=== PATIENT | female | born 1940 | race Caucasian/White ===

== ENCOUNTER → 2018-05-24 14:20 | Outpatient (CLI) | payer OTHER, SELFPAY | PROVIDERS: PCP Physician Assistant; Visit Provider Physician Assistant | DX: Z13.820 Encounter for screening for osteoporosis (principal); M81.0 Age-related osteoporosis without current pathological fracture; Z78.0 Asymptomatic menopausal state; Z82.62 Family history of osteoporosis | CPT/HCPCS: 77080 ==

== ENCOUNTER → 2020-03-19 08:37 | Outpatient (CLI) | payer OTHER, SELFPAY ==
[2020-03-19 11:21] LABS: COVID19 -Nasal RAPID Negative (Negative)
== END ==
PROVIDERS: PCP Physician Assistant; Visit Provider Physician Assistant
DX: Z11.59 Encounter for screening for other viral diseases (principal)
CPT/HCPCS: 87635

== ENCOUNTER → 2020-05-01 11:01 | Outpatient (CLI) | payer OTHER, SELFPAY ==
--- NOTE | 2020-05-01 11:38 | DI.RAD.S_ITS ---
PROCEDURE: XR FOOT RT MIN 3V INDICATIONS: FOOT PAIN TECHNIQUE: 3 views of the foot were acquired. COMPARISON: None. FINDINGS: Bones: No fractures or dislocations. No suspicious bony lesions. Joint space narrowing and osteophytosis is present at the TMT joints. Soft tissues: No tibiotalar joint effusion. Achilles tendon appears normal. IMPRESSION: Mild degenerative change. Dictated by: Christa Freitas M.D. on 05/01/2020 at 12:47 Approved by: Christa Freitas M.D. on 05/01/2020 at 12:48
== END ==
PROVIDERS: PCP Internal Medicine; Referring Provider Student in an Organized Health Care Education/Training Program; Visit Provider Student in an Organized Health Care Education/Training Program
DX: M79.671 Pain in right foot (principal)
CPT/HCPCS: 73630

== ENCOUNTER 2020-07-29 11:04 | Emergency (ER) | payer OTHER, SELFPAY ==
[2020-07-29 11:08] VITALS: BP 169/81; PULSE 71; RESP 16; TEMP 36.7; O2SAT 98; BMI 25.7
--- NOTE | 2020-07-29 11:44 | PC.NURSE ---
[facility] attempted to drain recurrent cyst on Tuesday without success. Was to come in for a recheck today to [facility] and pt feels it is worse and wanted to be seen in the ER. Pt was not placed on antibiotics at the time. No surrounding redness and pt denies fever or other systemic symptoms.
[2020-07-29 13:04] VITALS: BP 154/82; PULSE 67; RESP 18; O2SAT 99
--- NOTE | 2020-07-29 13:07 | ED_ITS ---
HPI - Skin/Abscess/Foreign Bdy <KENNETH AlvaradoBC - Last Filed: 07/29/20 14:59> General Chief complaint: Skin/Abscess/Foreign Body Stated complaint: infected cyst on back Time Seen by Provider: 07/29/20 12:10 Source: patient Mode of arrival: Ambulatory Limitations: no limitations History of Present Illness HPI narrative: The patient is a 80-year-old female nonsmoker with history of leonidas k cyst who presents with a chief complaint of a cyst on her back. She states she was seen at a walk-in clinic in [place] several days ago, they tried to Thang it did not get much out. The patient states that the provider put some kind of silver and its, and told her to come back if it was getting better and then the replace her on antibiotics. However today she notes that the cyst area is increasingly red and painful. She denies any drainage. Denies any fevers muscle aches chills nausea or vomiting. She denies any history of MRSA, history of diabetes or intravenous drug use. Related Data Home Medications Medication Instructions Recorded Confirmed aspirin 81 mg tablet,delayed 81 mg PO DAILY 11/27/17 11/27/17 release Previous Rx's Medication Instructions Recorded cephalexin 500 mg PO TID 7 Days #21 cap 07/29/20 Allergies Allergy/AdvReac Type Severity Reaction Status Date / Time acetaminophen [From Percocet] AdvReac GI upset Verified 07/29/20 11:12 oxycodone [From Percocet] AdvReac GI upset Verified 07/29/20 11:12 Review of Systems <TREVER Alvarado - Last Filed: 07/29/20 14:59> Review of Systems Narrative: GENERAL: Denies chills, fatigue, malaise, fever, sweats. HEENT: Denies sinus pain, ear pain, sore throat, difficulty swallowing, dizziness. RESPIRATORY: Denies dyspnea, cough, wheezing, hemoptysis, sputum. CARDIOVASCULAR: Denies chest pain, palpitations, orthopnea, edema, GASTROINTESTINAL: Denies nausea, vomiting, abdominal pain, diarrhea, constipation, melena. : Denies dysuria, frequency, incontinence, hematuria, urinary retention. MUSCULOSKELETAL: denies weakness, joint pain, or bony pain SKIN: See HPI NEUROLOGIC: Denies weakness, headache, numbness, change in speech, confusion, seizures, incoordination. PSYCHIATRIC: No concerning psychosocial issues. 12 point review of systems is negative except for those stated above Patient History <TREVER Alvarado - Last Filed: 07/29/20 14:59> Social History Smoking Status: Never smoker alcohol intake: current Smoking Status: Never smoker alcohol intake frequency: 0-2 drinks per day Substance Use Type: does not use Exam <TREVER Alvarado - Last Filed: 07/29/20 14:59> Narrative Exam Narrative: GENERAL: This is a well-nourished, well-developed patient, in no acute distress HEAD: Atraumatic. Normocephalic. No temporal or scalp tenderness. EYES: Pupils equal round and reactive. Extraocular motions intact. No scleral icterus. No injection or drainage. ENT: Nose without bleeding, purulent drainage or septal hematoma. Wearing a mask. Airway patent. NECK: Trachea midline. No JVD or lymphadenopathy. Supple, nontender, no meningeal signs. CARDIOVASCULAR: Regular rate and rhythm RESPIRATORY: No cough. No increased respiratory effort. No accessory muscle use. EXTREMITIES: No clubbing, cyanosis, or edema. No joint tenderness, effusion, or edema noted. BACK: See skin exam NEURO: AOx3. SKIN: 2 cm abscess noted right side of T-spine in between scapula, actively draining purulent drainage, erythema overlying noted. No other abnormality noted on visual skin. Initial Vital Signs Initial Vital Signs: Vital Signs Temperature 98.0 F 07/29/20 11:08 Pulse Rate 71 07/29/20 11:08 Respiratory Rate 16 07/29/20 11:08 Blood Pressure 169/81 H 07/29/20 11:08 Pulse Oximetry 98 07/29/20 11:08 <Rachel Yuan DO - Last Filed: 07/29/20 18:55> Initial Vital Signs Initial Vital Signs: Vital Signs Temperature 98.0 F 07/29/20 11:08 Pulse Rate 71 07/29/20 11:08 Respiratory Rate 16 07/29/20 11:08 Blood Pressure 169/81 H 07/29/20 11:08 Pulse Oximetry 98 07/29/20 11:08 Course <TREVER Alvarado - Last Filed: 07/29/20 14:59> Orders Ordered: ED Orders 07/29/20 13:00 Wound Culture and Gram Stain Stat Vital Signs Vital signs: Vital Signs - 8 hr 07/29/20 11:08 07/29/20 13:04 Temperature 98.0 F Pulse Rate 71 67 Respiratory Rate 16 18 Blood Pressure 169/81 H 154/82 H Pulse Oximetry 98 99 <Rachel Yuan DO - Last Filed: 07/29/20 18:55> Orders Ordered: ED Orders 07/29/20 13:00 Wound Culture and Gram Stain Stat Vital Signs Vital signs: Vital Signs - 8 hr 07/29/20 11:08 07/29/20 13:04 Temperature 98.0 F Pulse Rate 71 67 Respiratory Rate 16 18 Blood Pressure 169/81 H 154/82 H Pulse Oximetry 98 99 MDM - Skin/Abscess/Foreign Bdy <ELAYNE Alvarado-BC - Last Filed: 07/29/20 14:59> MDM Narrative Medical decision making narrative: The patient is a 80-year-old female who presents with a chief complaint of an abscess on her back that is actively draining. Wound culture was taken. Gentle pressure was applied to help facilitate drainage. The patient would prefer to use hot packs rather than cut into it again at this point in time, I am comfortable that given that it is active be draining. Will place her on Keflex as she has no history of IV drug use her diabetes. Encouraged follow-up with primary care provider gave her contact information to the [facility] health human resources specialist. Discussed monitor for fevers vomiting and signs of systemic infection. Patient has no questions or concerns upon discharge states understanding return precautions as well as follow-up care. Discharge Plan Departure Patient Disposition: Home Clinical Impression: Abscess of skin or subcutaneous tissue Qualifiers: Site of cutaneous abscess: trunk Site of cutaneous abscess of trunk: back Qualified Code(s): L02.212 - Cutaneous abscess of back [any part, except buttock] Instructions: DI for Skin Abscess Activity Restrictions/Additional Instructions: Thank you for trusting us with your care today. As discussed, I sent a prescription of antibiotics to [facility]. Please take this with probiotic or yogurt. That will help reduce antibiotic related side effects. As discussed, we are doing a wound culture. Will take several days to result. If we need to change your antibiotics, we will contact you. Please follow-up with primary care provider in the next few days. I have given you contact information to the [facility] human resources specialist. They can help much with primary care provider in the area. I suggest warm compresses several times per day to help facilitate drainage Please monitor for high fevers, extending redness despite several doses of antibiotics, or any acute concerns. If you have any acute concerns, please come back to the emergency department. Prescriptions: New cephalexin 500 mg capsule 500 mg PO TID 7 Days Qty: 21 RF: 0 No Action aspirin [Adult Low Dose Aspirin] 81 mg tablet,delayed release (DR/EC) 81 mg PO DAILY RF: 0 Referrals: [facility] [Outside] <Rachel Yuan, - Last Filed: 07/29/20 18:55> Cosign ED Attending Nadiyaature Attestation: I was immediately available in the department for consultation. Documentation has been reviewed. I agree with assessment and plan.
== END 2020-07-29 13:11 | disposition home or self-care (01) ==
PROVIDERS: Emergency Provider Nurse Practitioner Family
DX: L02.212 Cutaneous abscess of back [any part, except buttock and flank] (principal)
CPT/HCPCS: 87070; 87075; 87077; 87147; 87186; 87205; 99282

== ENCOUNTER → 2020-09-05 10:38 | Outpatient (CLI) | payer OTHER, SELFPAY ==
[2020-09-05 12:24] LABS: COVID19 -Nasal RAPID Negative (Negative)
== END ==
PROVIDERS: PCP Physician Assistant; Visit Provider Surgery
DX: Z20.822 Contact with and (suspected) exposure to COVID-19 (principal)
CPT/HCPCS: 87635; C9803

== ENCOUNTER 2020-09-08 12:07 | Day surgery (SDC) | payer OTHER, SELFPAY ==
[2020-09-04 08:30] VITALS: BMI 25.7
--- NOTE | 2020-09-08 | PATH_ITS ---
[facility] Accession Number: [id number] . 01 Material submitted: . back - UPPER BACK . 01 Diagnosis: Upper Back, Excision: Consistent with epidermal inclusion cyst with evidence of prior rupture. Incidental seborrheic keratosis. MRV 09/12/2020 1214 Local . 01 Electronically signed: . Remington Hernandez MD, Dermatopathologist NPI- [id number] . 01 Gross description: . The specimen is received in formalin, labeled upper back lesion and consists of a 3.2 x 1.0 cm skin excised to a depth of 1.0 cm. The skin surface displays a 1.1 x 0.8 x 0.2 cm -pink nodule abutting the margin. Also received is a 0.8 x 0.5 x 0.4 cm disrupted -white cyst. The margins are inked blue and the specimen is entirely submitted. . A1: tips from skin ellipse. A2-A4: central cross-sections of skin ellipse (lesion in A2-A3), 3 each. A5: cyst, bisected. (EA:[id number]) /MRV 09/09/2020 1558 Local . 01 Pathologist provided ICD-10: L72.0, L82.1 . 01 CPT . 536627 Performed at: [address] [facility] [address], [place], [place] [id number] MD Clemente Caro MD Phone: [phone]
[2020-09-08 12:26] VITALS: BP 145/77; PULSE 67; RESP 16; TEMP 36.3; O2SAT 99
[2020-09-08] MEDS: LACTATED RINGERS 1,000 ML 100 ML IV (12:36)
[2020-09-08 13:02] VITALS: BMI 25.7
--- NOTE | 2020-09-08 13:38 | PM.PREOP ---
Pre-operative Note COVID-19 COVID-19 status: Negative Result date/Date tested (Pos, Neg/Pending): 09/05/20 Interval Note History & Physical reviewed/Exam performed by Physician: Yes Changes to H&P: No
[2020-09-08] MEDS: CEFAZOLIN 2 GM/100 ML FROZ.PIGGY IV (13:45)
--- NOTE | 2020-09-08 14:05 | SUR.OPER ---
Lateral on GLASGOW BAG, head on pillow, gel axillary roll in place, bottom leg bent with gel pad under knee to foot, upper leg straight and supported with pillows. Upper arm supported by pillows and secured over bottom arm to padded arm board. Safety belt at hip, tape over blanket lower legs.
[2020-09-08] MEDS: BUPIVACAINE 0.25% W/ EPI (PF) 10 ML VIAL 20 ML INJ (14:12)
[2020-09-08 14:31] VITALS: BP 129/66; PULSE 64; RESP 15; TEMP 37; O2SAT 97
[2020-09-08 14:36] VITALS: BP 131/66; PULSE 64; RESP 12; O2SAT 97
--- NOTE | 2020-09-08 14:36 | P.OP_ITS ---
Operative Date/Time/Diagnoses Date of procedure: 09/08/20 Time of procedure: 14:36 Pre-op diagnosis: Chronic upper back skin lesion Post-op diagnosis: same Procedure & Clinicians Procedure: Excision of upper back skin lesion with underlying cystic mass Same procedure as scheduled: Yes Indications: Chronic upper back skin lesion, with skin involvement, and frequent swelling and spontaneous drainage. Unknown neoplastic potential. Surgeon: Gerda Garcia Anesthesia Type: General Operative Notes Findings: Cystic lesion involving the skin and subcutaneous tissue, with chronic skin changes Specimen(s): other (Upper back lesion) Estimated Blood Loss (mL): 3 Procedure in detail: The patient was brought to the operating room, placed supine on the operating table, and sequential compression devices were placed on both legs and turned on. Appropriate perioperative antibiotics were given. General anesthesia was induced by the anesthesiologist and the patient was intubated with an LMA. The patient was then placed in left lateral decubitus position with all bony prominences padded. The skin of the upper back was then prepped and draped in sterile fashion, and a surgical time-out was conducted. At this point local anesthetic was injected using 0.25% Marcaine with epi, at the site of the planned incision. A 5 cm vertical modified elliptical incision was then made in the skin including the lesion in question. Dissection was then carried down through the dermis and subcutaneous tissue, including the subcutaneous cystic lesion. The inspire specimen was dissected free and passed off the table. The remaining wound was irrigated, and electrocautery was used to achieve hemostasis. The skin was closed with 2-0 nylon horizontal mattress sutures. Total of 20 mL of 0.25% Marcaine with epi was infiltrated into the skin. A dry dressing was placed over the incision, and secured with Tegaderms. The patient was awakened from anesthesia and extubated. She was [facility]. The patient was then transferred to the postanesthesia care unit in stable condition. She tolerated the procedure well. Needle sponge and instrument counts were correct x2 at the end of the case. Complications: none Post-operative Condition: stable Disposition: PACU
[2020-09-08 14:46] VITALS: BP 128/66; BP 133/68; PULSE 65; RESP 13; RESP 17; O2SAT 97; O2SAT 98
[2020-09-08 14:49] VITALS: BP 145/63; PULSE 61; RESP 12; TEMP 36.9; O2SAT 97
[2020-09-08 15:06] VITALS: BP 132/68; PULSE 68; RESP 16; TEMP 36.6; O2SAT 99
== END 2020-09-08 15:16 | disposition home or self-care (01) ==
PROVIDERS: PCP Physician Assistant; Referring Provider Surgery; Visit Provider Surgery
PROC: (CPT 11406; principal; 2020-09-08 13:45)
DX: L72.0 Epidermal cyst (principal); L82.1 Other seborrheic keratosis; L29.9 Pruritus, unspecified; R20.2 Paresthesia of skin
CPT/HCPCS: 11406; J0690; J1100; J2405; J2704; J3010

== ENCOUNTER 2021-04-14 14:58 | Emergency (ER) | payer OTHER, SELFPAY ==
[2021-04-14] VITALS (10 sets, daily range): BP systolic 161–204; BP diastolic 77–91; PULSE 61–77; RESP 18–37; TEMP 36.9; O2SAT 86–98
--- NOTE | 2021-04-14 15:16 | DI.CT.S_ITS ---
PROCEDURE: CT HEAD/BRAIN WO CON INDICATIONS: headache/dizziness/nausea TECHNIQUE: Noncontrast 4.5 mm thick angled axial sections acquired from the foramen magnum to the vertex, with coronal and sagittal reformats. For radiation dose reduction, the following was used: automated exposure control, adjustment of mA and/or kV according to patient size. COMPARISON: None. FINDINGS: Image quality: Excellent. CSF spaces: Basal cisterns are patent. No extra-axial fluid collections. The ventricles are symmetric in size and shape. Brain: No intracranial bleeds or masses. There is cerebral volume loss for age, with resultant ventricular and sulcal prominence. There are periventricular and deep white matter chronic small vessel ischemic changes. There is intracranial internal carotid artery atherosclerosis. Skull and face: Calvarium and visualized facial bones appear intact, without suspicious lesions. Sinuses: Visualized sinuses and mastoids are clear. IMPRESSION: No acute intracranial abnormality. Dictated by: Sang León M.D. on 04/14/2021 at 16:12 Approved by: Sang León M.D. on 04/14/2021 at 16:13
--- NOTE | 2021-04-14 15:40 | PC.NURSE ---
Patient had some dizziness starting last night with headache, neck stiffness and nose bleed. Headache and dizziness worse this morning. Took aspirin [employer], wtih relief. Patient reports having some discomfort in right ear for about a week, also has a infected tooth on right upper jaw. Patient has had decrease appetite with minimal fluid intake over the last day or so. Negative home COVID test
--- NOTE | 2021-04-14 17:59 | DI.RAD.S_ITS ---
PROCEDURE: XR CHEST 2V INDICATIONS: dizziness TECHNIQUE: 2 views of the chest were acquired. COMPARISON: None. FINDINGS: Surgical changes and devices: None. Lungs and pleura: Lungs are clear. Chronic emphysematous changes are seen. No pleural effusions or pneumothorax. Mediastinum: Mediastinal contours are normal. Heart size is enlarged. Bones and chest wall: No suspicious bony abnormalities. Soft tissues appear unremarkable. IMPRESSION: COPD. No acute cardiopulmonary pathology. Dictated by: Zac King M.D. on 04/14/2021 at 19:24 Approved by: Zac King M.D. on 04/14/2021 at 19:24
--- NOTE | 2021-04-14 18:01 | DI.CT.S_ITS ---
PROCEDURE: CT ANGIO HEAD AND NECK INDICATIONS: dizziness TECHNIQUE: After the administration of intravenous contrast, 1 mm thick sections acquired from the aortic arch through the [place] of [place]. Post-contrast 4.5 mm thick sections then re-acquired from the foramen magnum to the vertex. 3-dimensional vvbwjwa-yrxhmggmy-mofvxhgkck (MIP) and/or volume rendering reformats were acquired of the central intracranial vasculature and neck separately. COMPARISON: None. FINDINGS: Image quality: Excellent. BRAIN: CSF spaces: Ventricles are normal in size and shape. Basal cisterns are patent. No extra-axial fluid collections. Brain: No midline shift. No intracranial bleeds or masses. Pfeiffer-white matter interface appears intact. No area of abnormal intracranial enhancement is seen. Skull and face: Calvarium and facial bones appear intact, without suspicious lesions. Orbits appear normal. Sinuses: Sinuses and mastoids are clear. HEAD CT ANGIOGRAPHY: Anterior circulation: Intracranial internal carotid arteries are normal in size and flow. The flow within the left anterior cerebral arteries is normal . Diminutive appearance of right A1 segment is seen with normal appearing more distal portion of right anterior cerebral artery. The flow within the middle cerebral arteries is normal and symmetric. The anterior communicating artery is seen. No aneurysms are seen. Posterior circulation: Visualized portions of the vertebral arteries demonstrate normal caliber, and join to form a normal appearing basilar artery. Flow within the posterior cerebral arteries is normal and symmetric. No aneurysms are seen. NECK CT ANGIOGRAPHY: Carotid system: The great vessels demonstrate a conventional anatomy as they arise from the aortic arch. The origins of the common carotid arteries appear patent. The common carotid arteries demonstrate normal caliber and courses. The bifurcation regions are both widely patent. The internal carotid arteries demonstrate normal calibers and courses. Posterior circulation: The origins of the vertebral arteries both appear widely patent. The more superior extracranial portions of both vertebral arteries also demonstrate normal courses and calibers. They join to form a normal appearing basilar artery. Soft tissues: Visualized neck soft tissues demonstrate no suspicious abnormalities. Bones: No suspicious bony lesions. Visualized cervical spine appears normally aligned. IMPRESSION: 1. No CT evidence of acute intracranial pathology. No area of abnormal contrast enhancement. 2. 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 No other area of hemodynamically significant stenosis or aneurysm is seen in intracranial circulation. 3. No hemodynamically significant stenosis is noted in bilateral neck arteries. Any quantitative measurements of stenosis were performed using NASCET criteria. Dictated by: Zac King M.D. on 04/14/2021 at 19:29 Approved by: Zac King M.D. on 04/14/2021 at 19:34
[2021-04-14] MEDS: MECLIZINE HCL 12.5 MG TABLET 25 MG PO (18:20)
[2021-04-14] MEDS: SODIUM CHLORIDE 0.9% 1,000 ML 1000 ML IV (18:21)
[2021-04-14 18:29] LABS: Add Manual Diff / Slide Review NO; Basophils Absolute Auto 0 /uL (0-100); Basophils Percent Auto 0.4 % (0-2); Eosinophils Absolute Auto 200 /uL (0-450); Hematocrit 42.5 % (36-46); Hemoglobin 14.3 g/dL (12.0-16.0); Lymphocytes Absolute Auto 1300 /uL (1100-4500); Lymphocytes Percent Auto 20.9 % (25-40); Mean Corpuscular HGB Conc 33.7 % (30-36); Mean Corpuscular Hemoglobin 30.8 PG (26-34); Mean Corpuscular Volume 91.4 fL (80-100); Monocytes Absolute Auto 700 /uL (0-900); Monocytes Percent Auto 10.5 % (3-14); Neutrophils Absolute Auto 4100 /uL (1500-7000); Neutrophils Percent Auto 65.2 % (50-75); Platelet Count 201 X10^3/uL (150-400); Red Blood Cell Count 4.65 X10^6/uL (4.0-5.2); Red Cell Distribution Width 14.3 % (11.6-14.8); White Blood Cell Count 6.2 X10^3/uL (4.5-11.0)
[2021-04-14 18:40] LABS: Alanine Aminotransferase 21 IU/L (<35); Albumin Globulin Ratio 1.7 (1.0-2.8); Alkaline Phosphatase 89 U/L (38-126); Aspartate Aminotransferase 29 IU/L (14-36); BUN Creatinine Ratio 22.9 (6-22); Bilirubin Total 0.6 mg/dL (0.2-1.3); Blood Urea Nitrogen 16 mg/dL (7-17); Calcium 10.1 mg/dL (8.4-10.2); Carbon Dioxide 31 mmol/L (22-32); Chloride 99 mmol/L (98-107); Estimated Glomerular Filt Rate > 60.0 mL/min (>60); Glucose 99 mg/dL (80-110); HEMOLYSIS < 15 (0-50); Lipase 115 U/L (23-300); Potassium 4.2 mmol/L (3.4-5.1); Sodium 136 mmol/L (137-145)
[2021-04-14 18:59] LABS: Troponin I < 0.012 ng/mL (0.01-0.034)
[2021-04-14 19:31] LABS: Appearance Urine UA CLEAR; Bilirubin Urine UA NEGATIVE (NEGATIVE); Color Urine UA YELLOW; Glucose Urine UA NEGATIVE (Negative); Ketones Urine UA 1+ (NEGATIVE); Leukocyte Esterase Urine UA TRACE (NEGATIVE); Nitrite Urine UA NEGATIVE (Negative); Occult Blood Urine UA 1+ (Negative); Protein Urine UA NEGATIVE (Negative); Specific Gravity Urine UA 1.025 (1.000-1.035); Urobilinogen Urine UA 0.2 E.U./dL (0.2)
[2021-04-14 19:49] LABS: RBC Urine 1-5/HPF (0-5/HPF); WBC Urine 1-5/HPF (0-5/HPF)
[2021-04-14 19:50] LABS: Bacteria Urine None Seen; Culture Indicated Urine Cult Not Indicated; Mucus Urine 1+ (Negative); Squamous Epithelial Cell Urine 1-5 /HPF (0-5/HPF); Transitional Epi Cells Urine 1-5/HPF (0-5/HPF)
--- NOTE | 2021-04-14 19:50 | ED_ITS ---
HPI - Neuro Symptoms/Deficit <Kevin Hook PA-C - Last Filed: 04/14/21 20:13> General Chief Complaint: Neuro Symptoms/Deficit Stated Complaint: possible stroke, headache, diziness, stiff neck Time Seen by Provider: 04/14/21 17:02 Source: patient Mode of arrival: Ambulatory History of Present Illness HPI Narrative: 81-year-old female with no reported past medical history presents to the ED with dizziness, nausea. Patient states she awoke in the middle of the night last night felt dizzy which she describes as the room moving around her and felt a wave of nausea. She was able to go back to bed and her nausea subsided. This morning, the dizziness persisted, and improved over the next few hours. In the ED patient states that she is back to baseline. Patient denies fever, chills, chest pain, shortness of breath, cough, vomiting, abdominal pain, dysuria, flank pain, syncope. Patient denies falls. Patient states that she did not eat all day yesterday until dinner, and that she has not been drinking enough water. Her did a home COVID test which was negative. Patient states that she does have an abscessed tooth that needs to be taking care of, but that she does not have a dentist appointment for it yet. Patient denies any dental pain. On Anticoagulants: No Related Data Home Medications Medication Instructions Recorded Confirmed aspirin 81 mg tablet,delayed 81 mg PO DAILY 11/27/17 09/23/20 release (Adult Low Dose Aspirin) biotin 1 mg capsule 5 mg PO DAILY 08/13/20 09/23/20 calcium carbonate 200 mg calcium 200 mg PO BID 08/13/20 09/23/20 (500 mg) chewable tablet (Antacid (calcium carbonate)) vitamin B complex (B 1 tab PO DAILY 08/13/20 09/23/20 Complex-Vitamin B12) cyanocobalamin (vitamin B-12) 2,500 mcg SUBLINGUAL DAILY 09/04/20 09/23/20 2,500 mcg sublingual tablet (Vitamin B-12) escitalopram oxalate 20 mg tablet 20 mg PO DAILY 09/04/20 09/23/20 Previous Rx's Medication Instructions Recorded meclizine 25 mg tablet 25 mg PO TID 5 Days #15 tab 04/14/21 Allergies Allergy/AdvReac Type Severity Reaction Status Date / Time acetaminophen [From Percocet] AdvReac GI upset Verified 09/23/20 09:15 oxycodone [From Percocet] AdvReac Vomiting Verified 09/23/20 09:15 Review of Systems <Kevin Hook PA-C - Last Filed: 04/14/21 20:13> Review of Systems ROS Unobtainable: All systems reviewed & are unremarkable except as noted in HPI and below Constitutional Constitutional: Denies chills, Denies fatigue, Denies fever(s), Denies frequent falls, Denies lethargy and Denies weakness Eyes Eyes: Denies change in vision, Denies eye discharge, Denies irritation and Denies loss of vision ENT Ears, Nose, Mouth, and Throat: Denies change in voice, Reports dizziness, Denies neck pain, Denies sore throat and Denies throat swelling Cardiovascular Cardiovascular: Denies chest pain, Denies irregular heart rhythm, Denies lightheadedness, Denies palpitations, Denies dyspnea, Denies dyspnea on exertion and Denies orthopnea Respiratory Respiratory: Denies cough, Denies dyspnea, Denies dyspnea on exertion and Denies wheezing Gastrointestinal Gastrointestinal: Denies abdominal pain, Denies change in bowel habits, Denies diarrhea, Reports nausea and Denies vomiting Genitourinary Genitourinary: Denies hematuria, Denies flank pain, Denies urinary incontinence and Denies urinary urgency Musculoskeletal Musculoskeletal: Denies back pain, Denies muscle weakness, Denies neck pain, Denies numbness and Denies tingling Integumentary/Breasts Skin/Breast: Denies pruritus, Denies erythema, Denies rash and Denies wounds Neurologic Neurologic: Denies behavioral changes, Denies confusion, Reports dizziness, Denies frequent falls, Denies loss of vision, Denies numbness, Denies tingling and Denies weakness Psychiatric Psychiatric: Denies anxiety, Denies behavioral changes, Denies confusion, Denies depression, Denies homicidal ideation and Denies suicidal ideation Endocrine Endocrine: Denies fatigue, Denies flushing and Denies palpitations Hematologic/Lymphatic Hematologic/Lymphatic: Denies easy bruising On Anticoagulants: No Allergic/Immunologic Allergic/Immunologic: Denies urticaria, Denies throat swelling and Denies wheezing Patient History <Kevin Hook PA-C - Last Filed: 04/14/21 20:13> Medical History Anemia Arthritis Hearing loss Hernia Hx of migraine headaches Neoplasm of uncertain behavior Osteoporosis Paresthesias Pruritus Surgical History H/O: hysterectomy (1977) Hx of hernia repair (~1989) Family History Sister Hypertension Father Heart disease Sister Hypertension Social History marital status: household members: spouse Smoking Status: Never smoker alcohol intake: current Smoking Status: Never smoker alcohol intake frequency: 0-2 drinks per day Substance Use Type: does not use Exam <Kevin Hook PA-C - Last Filed: 04/14/21 20:13> Initial Vital Signs Initial Vital Signs: Vital Signs Temperature 98.4 F 04/14/21 15:09 Pulse Rate 71 04/14/21 15:09 Respiratory Rate 18 04/14/21 15:09 Blood Pressure 192/91 H 04/14/21 15:09 Pulse Oximetry 97 04/14/21 15:09 Const General: cooperative, healthy appearing and comfortable HENMT Head: normal to inspection Mouth: oral mucosae normal Teeth and gingiva: poor dentition (No visible abscess/discharge/swelling.) Throat: posterior oropharynx normal Eyes General: appearance normal, both eyes and all related structures Neck Neck: normal visual inspection Chest Chest: normal inspection of the chest Resp Effort & Inspection: normal respiratory effort Auscultation: clear to auscultation bilaterally Cardio Rate: regular rate Rhythm: regular rhythm GI Other: Abdomen is soft, nontender, nondistended. No rashes or bruising noted on exam. No CVA tenderness. General: No CVA tenderness Skin General: no rashes or lesions noted Neuro General: patient alert, patient awake and patient oriented x3 Other: PERRLA. CN 1 through 12 intact bilaterally. Normal gait. Negative Romberg, negative [id number], negative pronator drift, negative rapid alternating movements. Strength and sensation intact. Full range of motion. Patient is neurologically intact. <Geena Morocho DO - Last Filed: 04/16/21 07:56> Initial Vital Signs Initial Vital Signs: Vital Signs Temperature 98.4 F 04/14/21 15:09 Pulse Rate 71 04/14/21 15:09 Respiratory Rate 18 04/14/21 15:09 Blood Pressure 192/91 H 04/14/21 15:09 Pulse Oximetry 97 04/14/21 15:09 Course <Kevin Hook PA-C - Last Filed: 04/14/21 20:13> Orders Ordered: Discontinued Medications Sodium Chloride (Normal Saline 0.9%) 1,000 mls @ 1,000 mls/hr IV BOLUS ONE Stop: 04/14/21 18:54 Last Infusion: 04/14/21 19:36 Dose: 0 mls/hr Documented by: Admin: 04/14/21 18:21 Dose: 1,000 mls/hr Documented by: MERVAT Meclizine HCl (Meclizine Hcl 12.5 Mg Tablet) 25 mg PO NOW ONE Stop: 04/14/21 17:56 Last Admin: 04/14/21 18:20 Dose: 25 mg Documented by: MERVAT Vital Signs Vital signs: Vital Signs - 8 hr 04/14/21 15:09 04/14/21 17:02 04/14/21 18:48 Temperature 98.4 F Pulse Rate 71 61 68 Respiratory Rate 18 21 Blood Pressure 192/91 H 161/77 H Pulse Oximetry 97 96 98 04/14/21 18:53 04/14/21 18:54 04/14/21 19:15 Temperature Pulse Rate 65 72 Respiratory Rate 20 28 H Blood Pressure 179/83 H 179/83 H Pulse Oximetry 97 86 L 04/14/21 19:30 04/14/21 19:49 04/14/21 19:50 Temperature Pulse Rate 77 63 62 Respiratory Rate 37 H 21 23 Blood Pressure 204/84 H 187/82 H Pulse Oximetry 90 L 96 97 04/14/21 20:00 Temperature Pulse Rate 69 Respiratory Rate 20 Blood Pressure 194/87 H Pulse Oximetry 94 <Geena Morocho DO - Last Filed: 04/16/21 07:56> Orders Ordered: Discontinued Medications Sodium Chloride (Normal Saline 0.9%) 1,000 mls @ 1,000 mls/hr IV BOLUS ONE Stop: 04/14/21 18:54 Last Infusion: 04/14/21 19:36 Dose: 0 mls/hr Documented by: Admin: 04/14/21 18:21 Dose: 1,000 mls/hr Documented by: MERVAT Meclizine HCl (Meclizine Hcl 12.5 Mg Tablet) 25 mg PO NOW ONE Stop: 04/14/21 17:56 Last Admin: 04/14/21 18:20 Dose: 25 mg Documented by: MERVAT Vital Signs Vital signs: Vital Signs - 8 hr 04/14/21 15:09 04/14/21 17:02 04/14/21 18:48 Temperature 98.4 F Pulse Rate 71 61 68 Respiratory Rate 18 21 Blood Pressure 192/91 H 161/77 H Pulse Oximetry 97 96 98 04/14/21 18:53 04/14/21 18:54 04/14/21 19:15 Temperature Pulse Rate 65 72 Respiratory Rate 20 28 H Blood Pressure 179/83 H 179/83 H Pulse Oximetry 97 86 L 04/14/21 19:30 04/14/21 19:49 04/14/21 19:50 Temperature Pulse Rate 77 63 62 Respiratory Rate 37 H 21 23 Blood Pressure 204/84 H 187/82 H Pulse Oximetry 90 L 96 97 04/14/21 20:00 Temperature Pulse Rate 69 Respiratory Rate 20 Blood Pressure 194/87 H Pulse Oximetry 94 MDM - Neuro Symptoms/Deficit <Kevin Hook PA-C - Last Filed: 04/14/21 20:13> Medical Records Attestation: I reviewed the patient's medical records. Lab Data Attestation: I reviewed the patient's lab results. Lab results narrative: Labs within normal limits. UA negative Result diagrams: 04/14/21 18:15 04/14/21 18:15 Labs: Lab Results 04/14/21 04/14/21 04/14/21 Range/Units 18:15 18:15 18:15 WBC 6.2 (4.5-11.0) X10^3/uL RBC 4.65 (4.0-5.2) X10^6/uL Hgb 14.3 (12.0-16.0) g/dL Hct 42.5 (36-46) % MCV 91.4 (80-100) fL MCH 30.8 (26-34) PG MCHC 33.7 (30-36) % RDW 14.3 (11.6-14.8) % Plt Count 201 (150-400) X10^3/uL Neut % (Auto) 65.2 (50-75) % Lymph % (Auto) 20.9 L (25-40) % [place] % (Auto) 10.5 (3-14) % Eos % (Auto) 3.0 (2-4) % Baso % (Auto) 0.4 (0-2) % Neut # (Auto) 4100 (9334-9566) /uL Lymph # (Auto) 1300 (2175-3859) /uL [place] # (Auto) 700 (0-900) /uL Eos # (Auto) 200 (0-450) /uL Baso # (Auto) 0 (0-100) /uL Sodium 136 L (137-145) mmol/L Potassium 4.2 (3.4-5.1) mmol/L Chloride 99 (98-107) mmol/L Carbon Dioxide 31 (22-32) mmol/L BUN 16 (7-17) mg/dL Creatinine 0.70 (0.52-1.04) mg/dL Estimated GFR > 60.0 (>60) mL/min BUN/Creatinine Ratio 22.9 H (6-22) Glucose 99 (80-110) mg/dL Calcium 10.1 (8.4-10.2) mg/dL Total Bilirubin 0.6 (0.2-1.3) mg/dL AST 29 (14-36) IU/L ALT 21 (<35) IU/L Alkaline Phosphatase 89 (38-126) U/L Troponin I < 0.012 (0.01-0.034) ng/mL Total Protein 8.0 (6.3-8.2) g/dL Albumin 5.0 (3.5-5.0) g/dL Globulin 3.0 (1.7-4.1) g/dL Albumin/Globulin Ratio 1.7 (1.0-2.8) Lipase 115 (23-300) U/L Urine Color Urine Appearance Urine pH (4.5-8.0) Ur Specific [place] (1.000-1.035) Urine Protein (Negative) Urine Glucose (UA) (Negative) g/dL Urine Ketones (NEGATIVE) Urine Occult Blood (Negative) Urine Nitrate (Negative) Urine Bilirubin (NEGATIVE) Urine Urobilinogen (0.2) E.U./dL Ur Leukocyte Esterase (NEGATIVE) Urine RBC (0-5/HPF) Urine WBC (0-5/HPF) Ur Squamous Epith Cells (0-5/HPF) Ur Transition Epith Cell (0-5/HPF) Urine Bacteria (None) Urine Mucus (Negative) Ur Culture Indicated? 04/14/21 Range/Units 19:05 WBC (4.5-11.0) X10^3/uL RBC (4.0-5.2) X10^6/uL Hgb (12.0-16.0) g/dL Hct (36-46) % MCV (80-100) fL MCH (26-34) PG MCHC (30-36) % RDW (11.6-14.8) % Plt Count (150-400) X10^3/uL Neut % (Auto) (50-75) % Lymph % (Auto) (25-40) % [place] % (Auto) (3-14) % Eos % (Auto) (2-4) % Baso % (Auto) (0-2) % Neut # (Auto) (3888-1346) /uL Lymph # (Auto) (4623-6906) /uL [place] # (Auto) (0-900) /uL Eos # (Auto) (0-450) /uL Baso # (Auto) (0-100) /uL Sodium (137-145) mmol/L Potassium (3.4-5.1) mmol/L Chloride (98-107) mmol/L Carbon Dioxide (22-32) mmol/L BUN (7-17) mg/dL Creatinine (0.52-1.04) mg/dL Estimated GFR (>60) mL/min BUN/Creatinine Ratio (6-22) Glucose (80-110) mg/dL Calcium (8.4-10.2) mg/dL Total Bilirubin (0.2-1.3) mg/dL AST (14-36) IU/L ALT (<35) IU/L Alkaline Phosphatase (38-126) U/L Troponin I (0.01-0.034) ng/mL Total Protein (6.3-8.2) g/dL Albumin (3.5-5.0) g/dL Globulin (1.7-4.1) g/dL Albumin/Globulin Ratio (1.0-2.8) Lipase (23-300) U/L Urine Color Yellow Urine Appearance Clear Urine pH 5.0 (4.5-8.0) Ur Specific [place] 1.025 (1.000-1.035) Urine Protein Negative (Negative) Urine Glucose (UA) Negative (Negative) g/dL Urine Ketones 1+ H (NEGATIVE) Urine Occult Blood 1+ H (Negative) Urine Nitrate Negative (Negative) Urine Bilirubin Negative (NEGATIVE) Urine Urobilinogen 0.2 (0.2) E.U./dL Ur Leukocyte Esterase Trace H (NEGATIVE) Urine RBC 1-5/hpf (0-5/HPF) Urine WBC 1-5/hpf (0-5/HPF) Ur Squamous Epith Cells 1-5 /hpf (0-5/HPF) Ur Transition Epith Cell 1-5/hpf (0-5/HPF) Urine Bacteria None seen (None) Urine Mucus 1+ H (Negative) Ur Culture Indicated? Cult not indicated Urine Dip Bedside Urine Glucose Negative Bedside Urine Bilirubin - Negative Bedside Urine Ketone +/- 5 Urine Specific [place] 1.030 Bedside Urine Occult Blood +/- Bedside Urine pH 6.0 Bedside Urine Protein - Negative Bedside Urine Urobilinogen - Negative Bedside Urine Nitrite - Negative Bedside Urine Leukocytes - Negative Esterase Imaging Data CTA head and neck: Radiologist's Impression: PROCEDURE:? CT ANGIO HEAD AND NECK ? INDICATIONS:? dizziness ? TECHNIQUE:? After the administration of intravenous contrast, 1 mm thick sections acquired from the aortic arch through the [place] of [place].? Post-contrast 4.5 mm thick sections then re-acquired from the foramen magnum to the vertex.? 3-dimensional gyecejb-mtuaydknn-azywakdvqw (MIP) and/or volume rendering reformats were acquired of the central intracranial vasculature and neck separately. ? COMPARISON:? None. ? FINDINGS:? Image quality:? Excellent.? ? BRAIN:? CSF spaces:? Ventricles are normal in size and shape.? Basal cisterns are patent.? No extra-axial fluid collections.? ? Brain:? No midline shift.? No intracranial bleeds or masses.? Pfeiffer-white matter interface appears intact.? No area of abnormal intracranial enhancement is seen. ? Skull and face:? Calvarium and facial bones appear intact, without suspicious lesions.? Orbits appear normal.? ? Sinuses:? Sinuses and mastoids are clear.? ? HEAD CT ANGIOGRAPHY:? Anterior circulation:? Intracranial internal carotid arteries are normal in size and flow.? The flow within the left anterior cerebral arteries is normal .? Diminutive appearance of right A1 segment is seen with normal appearing more distal portion of right anterior cerebral artery.? The flow within the middle cerebral arteries is normal and symmetric.? The anterior communicating artery is seen.? No aneurysms are seen.? ? Posterior circulation:? Visualized portions of the vertebral arteries demonstrate normal caliber, and join to form a normal appearing basilar artery.? Flow within the posterior cerebral arteries is normal and symmetric.? No aneurysms are seen.? ? NECK CT ANGIOGRAPHY:? Carotid system:? The great vessels demonstrate a conventional anatomy as they arise from the aortic arch.? The origins of the common carotid arteries appear patent.? The common carotid arteries demonstrate normal caliber and courses.? The bifurcation regions are both widely patent.? The internal carotid arteries demonstrate normal calibers and courses.? ? Posterior circulation:? The origins of the vertebral arteries both appear widely patent.? The more superior extracranial portions of both vertebral arteries also demonstrate normal courses and calibers.? They join to form a normal appearing basilar artery.? ? Soft tissues:? Visualized neck soft tissues demonstrate no suspicious abnor malities.? ? Bones:? No suspicious bony lesions.? Visualized cervical spine appears normally aligned.? IMPRESSION:? 1. No CT evidence of acute intracranial pathology.? No area of abnormal contrast enhancement. 2. Diminutive appearing A1 segment of right anterior cerebral artery most likely represent congenitally small A1 segment versus diffuse moderate to high-grade stenosis.? No other area of hemodynamically significant stenosis or aneurysm is seen in intracranial circulation. 3. No hemodynamically significant stenosis is noted in bilateral neck arteries. ? Any quantitative measurements of stenosis were performed using NASCET criteria.? ? ? Dictated by: Zac King M.D. on 04/14/2021 at 19:29 ? ? Approved by: Zac King M.D. on 04/14/2021 at 19:34 ? Chest x-ray: Radiologist's Impression: PROCEDURE:? XR CHEST 2V ? INDICATIONS:? dizziness ? TECHNIQUE:? 2 views of the chest were acquired.? ? COMPARISON:? None. ? FINDINGS:? ? Surgical changes and devices:? None.? ? Lungs and pleura:? Lungs are clear.? Chronic emphysematous changes are seen.? No pleural effusions or pneumothorax.? ? Mediastinum:? Mediastinal contours are normal.? Heart size is enlarged.? ? Bones and chest wall:? No suspicious bony abnormalities.? Soft tissues appear unremarkable.? ? IMPRESSION:? COPD.? No acute cardiopulmonary pathology. ? ? Dictated by: Zac King M.D. on 04/14/2021 at 19:24 ? ? Approved by: Zac King M.D. on 04/14/2021 at 19:24 ? CT scan - head: Radiologist's Impression: PROCEDURE:? CT HEAD/BRAIN WO CON ? INDICATIONS:? headache/dizziness/nausea ? TECHNIQUE:? Noncontrast 4.5 mm thick angled axial sections acquired from the foramen magnum to the vertex, with coronal and sagittal reformats.? For radiation dose reduction, the following was used:? automated exposure control, adjustment of mA and/or kV according to patient size.? ? COMPARISON:? None. ? FINDINGS:? Image quality:? Excellent.? ? CSF spaces:? Basal cisterns are patent.? No extra-axial fluid collections.? The ventricles are symmetric in size and shape.? ? Brain:? No intracranial bleeds or masses.? There is cerebral volume loss for age, with resultant ventricular and sulcal prominence.? There are periventricular and deep white matter chronic small vessel ischemic changes.? There is intracranial internal carotid artery atherosclerosis.? ? Skull and face:? Calvarium and visualized facial bones appear intact, without suspicious lesions.? ? Sinuses:? Visualized sinuses and mastoids are clear.? ? IMPRESSION:? No acute intracranial abnormality. ? ? Dictated by: Sang León M.D. on 04/14/2021 at 16:12 ? ? Approved by: Sang León M.D. on 04/14/2021 at 16:13 ? MDM Narrative Medical decision making narrative: 81-year-old female with no reported past medical history presents to the ED with dizziness, nausea. Concern for ACS versus peripheral vertigo versus infection vs intracranial bleed. Will order labs, EKG, chest x-ray, urinalysis, troponin. Will treat symptoms with IV fluids and meclizine. Will reassess. NIH stroke scale 0 Workup without any acute findings. CT head, CTA with no acute findings. Will discharge patient home with ED return precautions. <Geena Morocho, DO - Last Filed: 04/16/21 07:56> Lab Data Labs: Lab Results 04/14/21 04/14/21 04/14/21 Range/Units 18:15 18:15 18:15 WBC 6.2 (4.5-11.0) X10^3/uL RBC 4.65 (4.0-5.2) X10^6/uL Hgb 14.3 (12.0-16.0) g/dL Hct 42.5 (36-46) % MCV 91.4 (80-100) fL MCH 30.8 (26-34) PG MCHC 33.7 (30-36) % RDW 14.3 (11.6-14.8) % Plt Count 201 (150-400) X10^3/uL Neut % (Auto) 65.2 (50-75) % Lymph % (Auto) 20.9 L (25-40) % [place] % (Auto) 10.5 (3-14) % Eos % (Auto) 3.0 (2-4) % Baso % (Auto) 0.4 (0-2) % Neut # (Auto) 4100 (1822-9186) /uL Lymph # (Auto) 1300 (9427-0532) /uL [place] # (Auto) 700 (0-900) /uL Eos # (Auto) 200 (0-450) /uL Baso # (Auto) 0 (0-100) /uL Sodium 136 L (137-145) mmol/L Potassium 4.2 (3.4-5.1) mmol/L Chloride 99 (98-107) mmol/L Carbon Dioxide 31 (22-32) mmol/L BUN 16 (7-17) mg/dL Creatinine 0.70 (0.52-1.04) mg/dL Estimated GFR > 60.0 (>60) mL/min BUN/Creatinine Ratio 22.9 H (6-22) Glucose 99 (80-110) mg/dL Calcium 10.1 (8.4-10.2) mg/dL Total Bilirubin 0.6 (0.2-1.3) mg/dL AST 29 (14-36) IU/L ALT 21 (<35) IU/L Alkaline Phosphatase 89 (38-126) U/L Troponin I < 0.012 (0.01-0.034) ng/mL Total Protein 8.0 (6.3-8.2) g/dL Albumin 5.0 (3.5-5.0) g/dL Globulin 3.0 (1.7-4.1) g/dL Albumin/Globulin Ratio 1.7 (1.0-2.8) Lipase 115 (23-300) U/L Urine Color Urine Appearance Urine pH (4.5-8.0) Ur Specific [place] (1.000-1.035) Urine Protein (Negative) Urine Glucose (UA) (Negative) g/dL Urine Ketones (NEGATIVE) Urine Occult Blood (Negative) Urine Nitrate (Negative) Urine Bilirubin (NEGATIVE) Urine Urobilinogen (0.2) E.U./dL Ur Leukocyte Esterase (NEGATIVE) Urine RBC (0-5/HPF) Urine WBC (0-5/HPF) Ur Squamous Epith Cells (0-5/HPF) Ur Transition Epith Cell (0-5/HPF) Urine Bacteria (None) Urine Mucus (Negative) Ur Culture Indicated? 04/14/21 Range/Units 19:05 WBC (4.5-11.0) X10^3/uL RBC (4.0-5.2) X10^6/uL Hgb (12.0-16.0) g/dL Hct (36-46) % MCV (80-100) fL MCH (26-34) PG MCHC (30-36) % RDW (11.6-14.8) % Plt Count (150-400) X10^3/uL Neut % (Auto) (50-75) % Lymph % (Auto) (25-40) % [place] % (Auto) (3-14) % Eos % (Auto) (2-4) % Baso % (Auto) (0-2) % Neut # (Auto) (2853-7919) /uL Lymph # (Auto) (2412-6419) /uL [place] # (Auto) (0-900) /uL Eos # (Auto) (0-450) /uL Baso # (Auto) (0-100) /uL Sodium (137-145) mmol/L Potassium (3.4-5.1) mmol/L Chloride (98-107) mmol/L Carbon Dioxide (22-32) mmol/L BUN (7-17) mg/dL Creatinine (0.52-1.04) mg/dL Estimated GFR (>60) mL/min BUN/Creatinine Ratio (6-22) Glucose (80-110) mg/dL Calcium (8.4-10.2) mg/dL Total Bilirubin (0.2-1.3) mg/dL AST (14-36) IU/L ALT (<35) IU/L Alkaline Phosphatase (38-126) U/L Troponin I (0.01-0.034) ng/mL Total Protein (6.3-8.2) g/dL Albumin (3.5-5.0) g/dL Globulin (1.7-4.1) g/dL Albumin/Globulin Ratio (1.0-2.8) Lipase (23-300) U/L Urine Color Yellow Urine Appearance Clear Urine pH 5.0 (4.5-8.0) Ur Specific [place] 1.025 (1.000-1.035) Urine Protein Negative (Negative) Urine Glucose (UA) Negative (Negative) g/dL Urine Ketones 1+ H (NEGATIVE) Urine Occult Blood 1+ H (Negative) Urine Nitrate Negative (Negative) Urine Bilirubin Negative (NEGATIVE) Urine Urobilinogen 0.2 (0.2) E.U./dL Ur Leukocyte Esterase Trace H (NEGATIVE) Urine RBC 1-5/hpf (0-5/HPF) Urine WBC 1-5/hpf (0-5/HPF) Ur Squamous Epith Cells 1-5 /hpf (0-5/HPF) Ur Transition Epith Cell 1-5/hpf (0-5/HPF) Urine Bacteria None seen (None) Urine Mucus 1+ H (Negative) Ur Culture Indicated? Cult not indicated Urine Dip Bedside Urine Glucose Negative Bedside Urine Bilirubin - Negative Bedside Urine Ketone +/- 5 Urine Specific [place] 1.030 Bedside Urine Occult Blood +/- Bedside Urine pH 6.0 Bedside Urine Protein - Negative Bedside Urine Urobilinogen - Negative Bedside Urine Nitrite - Negative Bedside Urine Leukocytes - Negative Esterase Discharge Plan Departure Patient Disposition: Home Clinical Impression: Dizziness Instructions: Vertigo Activity Restrictions/Additional Instructions: You were evaluated in the ED for dizziness. You workup including labs, urine, EKG, chest x-ray, CT head, CT angiogram head and neck were normal. You were given some IV fluids and meclizine for dizziness, which improved your symptoms. You can continue to take meclizine for your symptoms. Please return to the ED if you experience worsening of symptoms, fevers, chills, headache, numbness, tingling, weakness. Please follow-up with your PCP. Please continue to stay hydrated. Prescriptions: New meclizine 25 mg tablet 25 mg PO TID 5 Days Qty: 15 0RF No Action aspirin [Adult Low Dose Aspirin] 81 mg tablet,delayed release (DR/EC) 81 mg PO DAILY 0RF Label Comments: States has not taken in a year, maybe biotin 1 mg capsule 5 mg PO DAILY 0RF vitamin B complex [B Complex-Vitamin B12] Tablet 1 tab PO DAILY 0RF calcium carbonate [Antacid (calcium carbonate)] 200 mg calcium (500 mg) tablet,chewable 200 mg PO BID 0RF cyanocobalamin (vitamin B-12) [Vitamin B-12] 2,500 mcg Tablet, Sublingual 2,500 mcg SUBLINGUAL DAILY 0RF escitalopram oxalate 20 mg Tablet 20 mg PO DAILY 0RF Referrals: Thi Silver PA-C [Primary Care Provider] - <Geena Morocho DO - Last Filed: 04/16/21 07:56> Cosign ED Attending Nadiyaature Attestation: I was immediately available in the department for consultation. Documentation has been reviewed.
== END 2021-04-14 20:25 | disposition home or self-care (01) ==
PROVIDERS: Emergency Provider Student in an Organized Health Care Education/Training Program; PCP Physician Assistant; Referring Provider Physician Assistant
DX: R42 Dizziness and giddiness (principal); R11.0 Nausea; R03.0 Elevated blood-pressure reading, without diagnosis of hypertension
CPT/HCPCS: 36415; 70450; 70496; 70498; 71046; 80053; 81001; 81003; 83690; 84484; 85025; 93005; 93010; 96360; 99284; Q9967

== ENCOUNTER → 2021-08-27 14:21 | Outpatient (CLI) | payer OTHER, SELFPAY ==
[2021-08-27 15:01] LABS: Hemoglobin 12.7 g/dL (12.0-16.0); Mean Corpuscular HGB Conc 33.3 % (30-36); Mean Corpuscular Hemoglobin 30.5 PG (26-34); Mean Corpuscular Volume 91.5 fL (80-100); Platelet Count 175 X10^3/uL (150-400); Red Blood Cell Count 4.16 X10^6/uL (4.0-5.2); Red Cell Distribution Width 13.8 % (11.6-14.8); White Blood Cell Count 5.8 X10^3/uL (4.5-11.0)
[2021-08-27 15:16] LABS: Alanine Aminotransferase 18 IU/L (<35); Albumin 4.6 g/dL (3.5-5.0); Albumin Globulin Ratio 1.8 (1.0-2.8); Alkaline Phosphatase 93 U/L (38-126); Aspartate Aminotransferase 28 IU/L (14-36); Bilirubin Total 0.5 mg/dL (0.2-1.3); Blood Urea Nitrogen 14 mg/dL (7-17); Calcium 9.4 mg/dL (8.4-10.2); Carbon Dioxide 30 mmol/L (22-32); Chloride 101 mmol/L (98-107); Estimated Glomerular Filt Rate > 60 mL/min (>60); Globulin 2.6 g/dL (1.7-4.1); Glucose 89 mg/dL (80-110); HEMOLYSIS < 15 (0-50); Potassium 4.2 mmol/L (3.4-5.1); Sodium 136 mmol/L (137-145); Total Protein 7.2 g/dL (6.3-8.2)
[2021-08-27 15:46] LABS: TSH w/ Reflex to FT4 0.35 uIU/mL (0.47-4.68)
[2021-08-27 16:14] LABS: Free T4, Direct Thyroxine 0.99 ng/dL (0.78-2.19)
== END ==
PROVIDERS: PCP Internal Medicine; Referring Provider Internal Medicine; Visit Provider Internal Medicine
DX: R03.0 Elevated blood-pressure reading, without diagnosis of hypertension (principal); M81.0 Age-related osteoporosis without current pathological fracture
CPT/HCPCS: 36415; 80053; 84439; 84443; 85027

== ENCOUNTER → 2021-09-01 11:51 | Outpatient (CLI) | payer OTHER, SELFPAY ==
[2021-09-01 13:34] LABS: Cholesterol 293 mg/dL (140-199); Triglycerides 67 mg/dL (35-150)
[2021-09-01 13:44] LABS: HDL Cholesterol 142 mg/dL (40-60); LDL Cholesterol Calculated 138 mg/dL (<100)
== END ==
PROVIDERS: PCP Internal Medicine; Referring Provider Internal Medicine; Visit Provider Internal Medicine
DX: M81.0 Age-related osteoporosis without current pathological fracture (principal); R03.0 Elevated blood-pressure reading, without diagnosis of hypertension
CPT/HCPCS: 36415; 80061

== ENCOUNTER → 2021-09-30 14:55 | Outpatient (CLI) | payer OTHER, SELFPAY | PROVIDERS: PCP Internal Medicine; Referring Provider Internal Medicine; Visit Provider Internal Medicine | DX: M81.0 Age-related osteoporosis without current pathological fracture (principal); Z78.0 Asymptomatic menopausal state; Z90.710 Acquired absence of both cervix and uterus | CPT/HCPCS: 77080 ==

== ENCOUNTER → 2022-10-07 14:36 | Outpatient (CLI) | payer OTHER, SELFPAY ==
[2022-10-07 15:03] LABS: Hemoglobin 13.4 g/dL (12.0-16.0); Mean Corpuscular HGB Conc 33.5 % (30-36); Mean Corpuscular Hemoglobin 30.6 PG (26-34); Mean Corpuscular Volume 91.3 fL (80-100); Platelet Count 168 X10^3/uL (150-400); Red Blood Cell Count 4.38 X10^6/uL (4.0-5.2); Red Cell Distribution Width 14.4 % (11.6-14.8)
[2022-10-07 15:20] LABS: Alanine Aminotransferase 24 IU/L (<35); Albumin 4.5 g/dL (3.5-5.0); Albumin Globulin Ratio 1.5 (1.0-2.8); Alkaline Phosphatase 99 U/L (38-126); Aspartate Aminotransferase 29 IU/L (14-36); BUN Creatinine Ratio 23.9 (6-22); Bilirubin Total 0.4 mg/dL (0.2-1.3); Blood Urea Nitrogen 16 mg/dL (7-17); Calcium 9.2 mg/dL (8.4-10.2); Carbon Dioxide 29 mmol/L (22-32); Chloride 98 mmol/L (98-107); Estimated Glomerular Filt Rate > 60 mL/min (>60); Glucose 103 mg/dL (80-110); HEMOLYSIS < 15 (0-50); Potassium 3.9 mmol/L (3.4-5.1); Sodium 134 mmol/L (137-145); Total Protein 7.5 g/dL (6.3-8.2)
[2022-10-07 16:02] LABS: TSH w/ Reflex to FT4 1.65 uIU/mL (0.47-4.68)
== END ==
PROVIDERS: PCP Internal Medicine; Referring Provider Nurse Practitioner Family; Visit Provider Nurse Practitioner Family
DX: R42 Dizziness and giddiness (principal)
CPT/HCPCS: 36415; 80053; 84443; 85027

== ENCOUNTER → 2022-12-03 10:50 | Outpatient (CLI) | payer OTHER, SELFPAY ==
[2022-12-03 12:43] LABS: Alanine Aminotransferase 20 IU/L (<35); Albumin 4.3 g/dL (3.5-5.0); Albumin Globulin Ratio 1.5 (1.0-2.8); Alkaline Phosphatase 94 U/L (38-126); Aspartate Aminotransferase 27 IU/L (14-36); BUN Creatinine Ratio 23.1 (6-22); Bilirubin Total 0.4 mg/dL (0.2-1.3); Blood Urea Nitrogen 15 mg/dL (7-17); Calcium 9.3 mg/dL (8.4-10.2); Carbon Dioxide 29 mmol/L (22-32); Chloride 101 mmol/L (98-107); Cholesterol 275 mg/dL (140-199); Estimated Glomerular Filt Rate > 60 mL/min (>60); Globulin 2.8 g/dL (1.7-4.1); Glucose 90 mg/dL (80-110); HEMOLYSIS < 15 (0-50); Potassium 4.2 mmol/L (3.4-5.1); Sodium 136 mmol/L (137-145); Total Protein 7.1 g/dL (6.3-8.2); Triglycerides 86 mg/dL (35-150)
[2022-12-03 12:55] LABS: HDL Cholesterol 113 mg/dL (40-60); LDL Cholesterol Calculated 145 mg/dL (<100)
== END ==
PROVIDERS: PCP Internal Medicine; Referring Provider Internal Medicine; Visit Provider Internal Medicine
DX: E78.2 Mixed hyperlipidemia (principal); M81.0 Age-related osteoporosis without current pathological fracture; R03.0 Elevated blood-pressure reading, without diagnosis of hypertension
CPT/HCPCS: 36415; 80053; 80061

== ENCOUNTER → 2023-08-16 14:01 | Outpatient (CLI) | payer OTHER, SELFPAY ==
--- NOTE | 2023-08-16 14:02 | DI.US.S_ITS ---
PROCEDURE: US ABDOMEN LIMITED INDICATIONS: PALPABLE RIGHT GROIN LUMP TECHNIQUE: Real-time focused scanning was performed of the abdomen, with image documentation. COMPARISON: None. FINDINGS: Scan is performed at the area of clinical concern within the right groin. At this site, there is a bowel containing hernias seen medial to the vessels, the hernia neck measures 14 x 7 mm. There are knee appears reducible with compression. IMPRESSION: Bowel containing right groin hernia, which appears reducible. Surgical consultation is recommended. If clinically appropriate, a follow-up CT scan with at least IV contrast may also be helpful for further evaluation. Dictated by: Gustavo Chambers M.D. on 08/16/2023 at 13:55 Approved by: Gustavo Chambers M.D. on 08/16/2023 at 13:57
== END ==
PROVIDERS: PCP Internal Medicine; Referring Provider Internal Medicine; Visit Provider Internal Medicine
DX: K40.90 Unilateral inguinal hernia, without obstruction or gangrene, not specified as recurrent (principal)
CPT/HCPCS: 76705

== ENCOUNTER → 2024-08-13 12:24 | Outpatient (CLI) | payer OTHER, SELFPAY ==
[2024-08-13 13:18] LABS: Hematocrit 39.3 % (36-46); Hemoglobin 12.9 g/dL (12.0-16.0); Mean Corpuscular HGB Conc 32.8 % (30-36); Mean Corpuscular Hemoglobin 30.4 PG (26-34); Mean Corpuscular Volume 92.5 fL (80-100); Platelet Count 182 X10^3/uL (150-400); Red Blood Cell Count 4.25 X10^6/uL (4.0-5.2); Red Cell Distribution Width 14.7 % (11.6-14.8); White Blood Cell Count 6.1 X10^3/uL (4.5-11.0)
[2024-08-13 13:44] LABS: Alanine Aminotransferase 21 IU/L (<35); Albumin 4.6 g/dL (3.5-5.0); Albumin Globulin Ratio 1.8 (1.0-2.8); Alkaline Phosphatase 101 U/L (38-126); Aspartate Aminotransferase 29 IU/L (14-36); BUN Creatinine Ratio 26.4 (6-22); Bilirubin Total 0.5 mg/dL (0.2-1.3); Blood Urea Nitrogen 19 mg/dL (7-17); Calcium 9.6 mg/dL (8.4-10.2); Carbon Dioxide 28 mmol/L (22-32); Chloride 100 mmol/L (98-107); Cholesterol 308 mg/dL (140-199); Estimated Glomerular Filt Rate > 60 mL/min (>60); Globulin 2.6 g/dL (1.7-4.1); Glucose 93 mg/dL (80-110); HEMOLYSIS < 15 (0-50); Potassium 4.1 mmol/L (3.4-5.1); Sodium 135 mmol/L (137-145); Total Protein 7.2 g/dL (6.3-8.2); Triglycerides 97 mg/dL (35-150)
[2024-08-13 13:52] LABS: HDL Cholesterol 132 mg/dL (40-60); LDL Cholesterol Calculated 157 mg/dL (<100)
[2024-08-13 14:10] LABS: TSH w/ Reflex to FT4 2.19 uIU/mL (0.47-4.68)
== END ==
PROVIDERS: PCP Internal Medicine; Referring Provider Internal Medicine; Visit Provider Internal Medicine
DX: I65.29 Occlusion and stenosis of unspecified carotid artery (principal); E78.2 Mixed hyperlipidemia; M81.0 Age-related osteoporosis without current pathological fracture
CPT/HCPCS: 36415; 80053; 80061; 84443; 85027

== ENCOUNTER → 2024-10-23 10:47 | Outpatient (CLI) | payer OTHER, SELFPAY ==
[2024-10-23 12:00] LABS: C-Reactive Protein Quant < 0.5 mg/dL (<1.0)
[2024-10-23 13:31] LABS: Hematocrit 39.6 % (36-46); Hemoglobin 13.3 g/dL (12.0-16.0); Mean Corpuscular HGB Conc 33.7 % (30-36); Mean Corpuscular Hemoglobin 30.8 PG (26-34); Mean Corpuscular Volume 91.4 fL (80-100); Platelet Count 176 X10^3/uL (150-400); Red Blood Cell Count 4.33 X10^6/uL (4.0-5.2); Red Cell Distribution Width 13.9 % (11.6-14.8); White Blood Cell Count 5.2 X10^3/uL (4.5-11.0)
[2024-10-23 14:11] LABS: Erythrocyte Sedimentation Rate 9 MM/HR (0-20)
== END ==
PROVIDERS: PCP Internal Medicine; Referring Provider Internal Medicine; Visit Provider Internal Medicine
DX: R51.9 Headache, unspecified (principal); M31.6 Other giant cell arteritis
CPT/HCPCS: 36415; 85027; 85651; 86140